=== PATIENT | female | born 1940 | race Caucasian/White ===

== ENCOUNTER → 2019-07-01 12:58 | Outpatient (BNVA) | payer MEDICARE, MEDICAID, SELFPAY | PROVIDERS: Family Provider Internal Medicine; PCP Internal Medicine; Visit Provider Specialist | DX: I99.8 Other disorder of circulatory system (principal) | CPT/HCPCS: 99214 ==

== ENCOUNTER → 2019-08-01 13:25 | Outpatient (BNVA) | payer MEDICARE, MEDICAID, SELFPAY | PROVIDERS: Family Provider Internal Medicine; PCP Internal Medicine; Visit Provider Internal Medicine Cardiovascular Disease | DX: R00.1 Bradycardia, unspecified (principal); I10 Essential (primary) hypertension; E11.9 Type 2 diabetes mellitus without complications | CPT/HCPCS: 80053; 83036; 83880; 84443; 85025 ==

== ENCOUNTER → 2020-06-01 14:54 | Outpatient (BNVA) | payer MEDICARE, MEDICAID, SELFPAY | PROVIDERS: Family Provider Internal Medicine; PCP Family Medicine; Visit Provider Family Medicine | DX: I10 Essential (primary) hypertension (principal); E03.9 Hypothyroidism, unspecified; R42 Dizziness and giddiness; E78.5 Hyperlipidemia, unspecified; E11.9 Type 2 diabetes mellitus without complications; I16.0 Hypertensive urgency; G45.9 Transient cerebral ischemic attack, unspecified; R00.1 Bradycardia, unspecified | CPT/HCPCS: 80053; 80061; 83036; 84439; 84443; 84481; 85025 ==

== ENCOUNTER 2020-08-27 13:55 | Outpatient (CLI) | payer MEDICARE, MEDICAID, SELFPAY ==
--- NOTE | 2020-08-27 14:15 | USCV_ITS ---
Magaly Walton Age: 80 Gender: F : 1940 Exam Date: 08/27/2020 14:05 Ordering Phys: Catrachita Sims MD ([email or web address]) Technologist: Lnaa Etienne Exam Location: [facility] – [place] Indication: STENOSIS Risk Factors: Previous Vascular Surgery: Right Brachial BP: / Left Brachial BP: / Right Left Velocity (cm/s) Spectral Plaque Velocity (cm/s) Spectral Plaque Syst/Diast Broadening Syst/Diast Broadening 35.60/ 10.50 Prox CCA 45.00 / 10.90 31.50/ 8.20 Mid CCA 34.60 / 8.10 22.20/ 9.30 Distal CCA 25.60 / 7.60 20.80/ 10.60 Prox ICA 17.50 / 7.90 21.20/ 11.00 Mid ICA 22.30 / 10.70 27.40/ 12.40 Distal ICA 35.40 / 14.70 33.90 ECA 31.80 0.87 ICA/CCA 1.02 Antegrade Vertebral Antegrade 17.90/ 9.10 cm/s 16.70/ 8.40 cm/s Tri Subclavian Tri 38.30 21.70 CONCLUSIONS Right ICA stenosis <50%. Left ICA stenosis <50%. Normal antegrade Doppler flow noted in the right vertebral artery. Normal antegrade Doppler flow noted in the left vertebral artery. Raul Campa MD (Electronically Signed) Final Date: 27 August 2020 15:28 S
== END 2020-08-27 13:56 | disposition home or self-care (01) ==
LOC: US 13:57
PROVIDERS: PCP Family Medicine; Visit Provider Internal Medicine Cardiovascular Disease
DX: I65.23 Occlusion and stenosis of bilateral carotid arteries (principal)
CPT/HCPCS: 93880

== ENCOUNTER → 2020-11-25 11:37 | Outpatient (BNVA) | payer MEDICARE, MEDICAID, SELFPAY | PROVIDERS: PCP Family Medicine; Visit Provider Family Medicine | DX: I10 Essential (primary) hypertension (principal); E03.9 Hypothyroidism, unspecified; E11.9 Type 2 diabetes mellitus without complications; M25.531 Pain in right wrist | CPT/HCPCS: 73110; 80053; 83036; 84439; 84443; 84481 ==

== ENCOUNTER → 2021-07-20 11:13 | Outpatient (BNVA) | payer MEDICARE, MEDICAID, SELFPAY | PROVIDERS: PCP Family Medicine; Visit Provider Family Medicine | DX: I10 Essential (primary) hypertension (principal); E03.9 Hypothyroidism, unspecified; E11.9 Type 2 diabetes mellitus without complications; E78.5 Hyperlipidemia, unspecified; I65.29 Occlusion and stenosis of unspecified carotid artery; M19.039 Primary osteoarthritis, unspecified wrist | CPT/HCPCS: 80048; 80061; 83036; 84443 ==

== ENCOUNTER → 2021-10-28 10:01 | Outpatient (BNVA) | payer MEDICARE, MEDICAID, SELFPAY | PROVIDERS: PCP Family Medicine; Visit Provider Emergency Medicine | DX: M54.50 Low back pain, unspecified (principal); M25.561 Pain in right knee; G89.29 Other chronic pain; M85.88 Other specified disorders of bone density and structure, other site; M25.461 Effusion, right knee | CPT/HCPCS: 72100; 73562 ==

== ENCOUNTER → 2022-04-27 11:16 | Outpatient (BNVA) | payer MEDICARE, MEDICAID, SELFPAY | PROVIDERS: PCP Family Medicine; Visit Provider Family Medicine | DX: A09 Infectious gastroenteritis and colitis, unspecified (principal); M54.9 Dorsalgia, unspecified; E03.9 Hypothyroidism, unspecified; E11.9 Type 2 diabetes mellitus without complications; I10 Essential (primary) hypertension | CPT/HCPCS: 80053; 81000; 83036; 84443; 85025 ==

== ENCOUNTER → 2022-05-03 09:16 | Outpatient (BNVA) | payer MEDICARE, MEDICAID, SELFPAY | PROVIDERS: PCP Family Medicine; Visit Provider Family Medicine | DX: M54.9 Dorsalgia, unspecified (principal) | CPT/HCPCS: 81000 ==

== ENCOUNTER → 2022-10-27 12:25 | Outpatient (BNVA) | payer MEDICARE, MEDICAID, SELFPAY | PROVIDERS: PCP Family Medicine; Visit Provider Family Medicine | DX: E03.9 Hypothyroidism, unspecified (principal); E78.5 Hyperlipidemia, unspecified; I10 Essential (primary) hypertension; R60.0 Localized edema | CPT/HCPCS: 80053; 80061; 83880; 84439; 84443; 84481 ==

== ENCOUNTER → 2022-12-06 09:44 | Outpatient (BNVA) | payer MEDICARE, MEDICAID, SELFPAY | PROVIDERS: PCP Family Medicine; Visit Provider Podiatrist Foot & Ankle Surgery | DX: I73.9 Peripheral vascular disease, unspecified (principal); E11.42 Type 2 diabetes mellitus with diabetic polyneuropathy; M21.41 Flat foot [pes planus] (acquired), right foot; M21.42 Flat foot [pes planus] (acquired), left foot; L60.3 Nail dystrophy | CPT/HCPCS: 11721; 99204 ==

== ENCOUNTER → 2023-01-02 12:02 | Outpatient (BNVA) | payer MEDICARE, MEDICAID, SELFPAY | PROVIDERS: PCP Family Medicine; Visit Provider Family Medicine | DX: I10 Essential (primary) hypertension (principal); E87.1 Hypo-osmolality and hyponatremia | CPT/HCPCS: 80048 ==

== ENCOUNTER → 2023-01-10 11:41 | Outpatient (BNVA) | payer MEDICARE, MEDICAID, SELFPAY | PROVIDERS: PCP Family Medicine; Visit Provider Family Medicine | DX: I10 Essential (primary) hypertension (principal); E03.9 Hypothyroidism, unspecified; E11.9 Type 2 diabetes mellitus without complications | CPT/HCPCS: 80048; 83036; 84439; 84443; 84481 ==